=== PATIENT | female | born 1965 | race Hispanic/Latino ===

== ENCOUNTER 2021-07-27 19:27 | Inpatient (IN) | payer OTHER ==
[~2021-07-27] VITALS: Ht 160 cm; Wt 54.2 kg
[2021-07-27] MEDS ORDERED: ONDANSETRON HCL INJ 2MG/ML 2ML 2 MG/ML VIAL IV STA (19:56)
[2021-07-27] MEDS ORDERED: SODIUM CHLORIDE 0.9% 1000ML 1,000 ML IV ONE (20:00)
[2021-07-27] MEDS ORDERED: DICYCLOMINE HCL 20 MG/2 ML VIAL IM ONE ×2 (20:00)
[2021-07-27] MEDS ORDERED: SODIUM CHLORIDE 0.9% 1000ML 1,000 ML ONE (20:01)
[2021-07-27] MEDS ORDERED: ONDANSETRON HCL INJ 2MG/ML 2ML 2 MG/ML VIAL ONE (20:01)
[2021-07-27 20:05] LABS: BASOPHILS # (AUTO) 0.1 (0.0-0.1); BASOPHILS % 0.4 % (0.0-1.0); EOSINOPHILS # (AUTO) 0.1 (0.0-0.4); EOSINOPHILS % 0.4 % (0.0-6.0); HEMATOCRIT 47.2 % (34.2-44.1); HEMOGLOBIN 15.5 g/dL (12.0-16.0); LYMPHOCYTES # (AUTO) 3.3 (1.0-3.2); LYMPHOCYTES % 15.8 % (18.0-39.1); MEAN CORPUSCULAR HEMOGLOBIN 28.1 pg (28-32); MEAN CORPUSCULAR HGB CONC 32.8 g/dL (31-35); MEAN CORPUSCULAR VOLUME 85.7 fL (81-99); MONOCYTES % 4.9 % (4.4-11.3); NEUTROPHILS # (AUTO) 16.4 (2.1-6.9); PLATELET COUNT 300 x10e3/uL (140-360); RED BLOOD COUNT 5.51 x10e6/uL (3.6-5.1); RED CELL DISTRIBUTION WIDTH 13.9 % (11.7-14.4)
[2021-07-27 20:12] LABS: AMPHETAMINES SCREEN,URINE NEGATIVE (NEGATIVE); BENZODIAZEPINES SCREEN,URINE NEGATIVE (NEGATIVE); PHENCYCLIDINE SCREEN,URINE NEGATIVE (NEGATIVE)
[2021-07-27 20:17] LABS: ALBUMIN 4.9 g/dL (3.5-5.0); ALBUMIN/GLOBULIN RATIO 1.1 (0.8-2.0); ANION GAP 18.7 mmol/L (8-16); POTASSIUM 3.7 mmol/L (3.5-5.1)
[2021-07-27 20:21] LABS: AMYLASE 104 U/L (25-125); LIPASE 51 U/L (8-78)
[2021-07-27 20:25] LABS: CREATINE KINASE MB 0.6 ng/mL (0-5.0)
[2021-07-27] MEDS ORDERED: MORPHINE SULFATE INJ 4 MG/ML INJ 1ML IV PRN (20:30)
[2021-07-27] MEDS ORDERED: CEFEPIME 1 GM in SODIUM CHLORIDE 0.9% 50ML 50 ML IV ONE (20:45)
[2021-07-27] MEDS ORDERED: IOPAMIDOL 370 MG/ML 200 ML INFUS..BTL INJ ONE (21:18)
[2021-07-27] MEDS ORDERED: SODIUM CHLORIDE 0.9% 50ML 50 ML ONE (21:18)
[2021-07-27 22:38] LABS: CLARITY,URINE SL CLOUDY (CLEAR); COLOR,URINE YELLOW (YELLOW); KETONES,URINE NEGATIVE (NEGATIVE); LEUKOCYTE ESTERASE ,URINE TRACE (NEGATIVE); NITRITE,URINE NEGATIVE (NEGATIVE); PROTEIN,URINE DIPSTICK NEGATIVE (NEGATIVE); URINE UROBILINOGEN 0.2 mg/dL (0.2 - 1)
[2021-07-27 22:41] LABS: BACTERIA,URINE FEW /HPF; EPITHELIAL CELLS,URINE RARE /LPF; RBC,URINE 0-5 /HPF (0-5)
[2021-07-27] MEDS ORDERED: DEXTROSE 50% SYRINGE 50 ML IV PRN (23:15)
[2021-07-28] VITALS (11 sets, daily range): BP systolic 101–132; BP diastolic 68–88
[2021-07-28] MEDS: METRONIDAZOLE 500MG/NS 100ML IV SCH ×5 (00:19→18:00)
[2021-07-28] MEDS: SODIUM CHLORIDE 0.9% 1000ML 1,000 ML IV SCH ×3 (01:37→17:00)
[2021-07-28] MEDS: CEFEPIME 1 GM in SODIUM CHLORIDE 0.9% 50ML 50 ML IV SCH ×3 (05:10→21:22)
[2021-07-28] MEDS: INSULIN REGULAR, HUMAN 100 UNIT/1 ML SQ SCH ×4 (07:30→21:22)
[2021-07-28 07:48] LABS: BASOPHILS % 0.4 % (0.0-1.0); EOSINOPHILS # (AUTO) 0.1 (0.0-0.4); HEMATOCRIT 37.2 % (34.2-44.1); LYMPHOCYTES % 39.1 % (18.0-39.1); MEAN CORPUSCULAR HEMOGLOBIN 27.9 pg (28-32); MEAN CORPUSCULAR HGB CONC 32.3 g/dL (31-35); MEAN CORPUSCULAR VOLUME 86.5 fL (81-99); MONOCYTES # (AUTO) 0.4 (0.2-0.8); MONOCYTES % 8.5 % (4.4-11.3); NEUTROPHILS # (AUTO) 2.6 (2.1-6.9); NEUTROPHILS % 50.8 % (38.7-80.0); PLATELET COUNT 202 x10e3/uL (140-360); RED CELL DISTRIBUTION WIDTH 14.2 % (11.7-14.4)
[2021-07-28 08:17] LABS: ALBUMIN 3.5 g/dL (3.5-5.0); ALBUMIN/GLOBULIN RATIO 1.2 (0.8-2.0); ANION GAP 11.3 mmol/L (8-16); CALCIUM 8.5 mg/dL (8.4-10.2); CREATININE, SERUM 0.81 mg/dL (0.57-1.11); POTASSIUM 4.3 mmol/L (3.5-5.1)
[2021-07-28] MEDS ORDERED: BUPIVACAINE HCL 0.5% INJ 30 ML VIAL INJ ONE (12:47)
[2021-07-28] MEDS ORDERED: FENTANYL CITRATE/PF 100MCG/2 ML INJ ONE (14:15)
[2021-07-28] MEDS: MORPHINE SULFATE INJ 4 MG/ML INJ 1ML IV PRN ×2 (15:09→19:47)
[2021-07-28] MEDS: ONDANSETRON HCL INJ 2MG/ML 2ML 2 MG/ML VIAL IV PRN ×2 (18:47→18:48)
[2021-07-29] MEDS: SODIUM CHLORIDE 0.9% 1000ML 1,000 ML IV SCH ×2 (00:07→07:15)
[2021-07-29] MEDS: METRONIDAZOLE 500MG/NS 100ML IV SCH ×4 (00:08→18:00)
[2021-07-29] MEDS: MORPHINE SULFATE INJ 4 MG/ML INJ 1ML IV PRN ×3 (00:08→16:22)
[2021-07-29] MEDS: ONDANSETRON HCL INJ 2MG/ML 2ML 2 MG/ML VIAL IV PRN (00:08)
[2021-07-29 00:19] VITALS: BP 127/75
[2021-07-29 05:23] VITALS: BP 109/85
[2021-07-29] MEDS: CEFEPIME 1 GM in SODIUM CHLORIDE 0.9% 50ML 50 ML IV SCH ×2 (06:12→14:00)
[2021-07-29] MEDS: INSULIN REGULAR, HUMAN 100 UNIT/1 ML SQ SCH ×3 (07:30→16:30)
[2021-07-29 08:20] VITALS: BP 120/75
[2021-07-29 09:15] VITALS: BP 120/75
[2021-07-29 12:31] VITALS: BP 114/78
[2021-07-29 16:32] VITALS: BP 130/89
[2021-07-29] MEDS ORDERED: ULTRAM 50MG50 MG PO (17:11)
[2021-07-29] MEDS ORDERED: FLAGYL500 MG PO (17:47)
== END 2021-07-29 18:04 | disposition home or self-care (01) | DRG 419 ==
LOC: ER 20:02 → ERHOLD 23:16 → MED/SURG3 07-28 01:28
PROVIDERS: ADMIT Internal Medicine; ATTEND Internal Medicine
PROC: 0FT44ZZ Resection of Gallbladder, Percutaneous Endoscopic Approach (ICD-10-PCS; principal; 2021-07-28 12:47)
DX: K80.10 Calculus of gallbladder with chronic cholecystitis without obstruction (principal); E11.9 Type 2 diabetes mellitus without complications; E78.5 Hyperlipidemia, unspecified; F17.210 Nicotine dependence, cigarettes, uncomplicated; Z91.14 Patient's other noncompliance with medication regimen; K52.9 Noninfective gastroenteritis and colitis, unspecified; Z86.010 Personal history of colon polyps; K21.9 Gastro-esophageal reflux disease without esophagitis; F10.10 Alcohol abuse, uncomplicated; Z20.822 Contact with and (suspected) exposure to COVID-19; Y90.0 Blood alcohol level of less than 20 mg/100 ml; I10 Essential (primary) hypertension
CPT/HCPCS: 36415; 74177; 76700; 80053; 80307; 80320; 81001; 82150; 82550; 82553; 82948; 83605; 83690; 84484; 85025; 87040; 87086; 88304; 93005; 96361; 99284; J0500; J0692; J2270; J2405; J3010; J7030; Q9967; U0002